=== PATIENT | male | born 1990 | race African-American/Black ===

== ENCOUNTER 2016-07-15 19:36 | Emergency (ER) | payer BC ==
--- NOTE | ~2016-07-15 | CR282 ---
[facility] A Service of [facility] & [facility] RADIOLOGY TEXT RESULTS PATIENT: JESSICA SCHUSTER LOCATION: CFTX : [birth year] UNIT #: [id number] AGE: [address]: Florinda Robin APRN SEX: M ORDER DR: [id number] [facility] [address] [place], [place] [address] [id number] E MR#: [id number] Acc #: [id number] NAME: JESSICA SCHUSTER : 1990 SEX: M STUDY DATE/TIME: 07/15/2016 19:55 UNIT: [facility] ROOM: STUDY DESCRIPTION: CR Wrist Min 3 View Rt Attending Physician: Florinda Robin A.P.R.N. Ordering Physician: Florinda Robin A.P.R.N. Primary Care Physician: No Primary Care Physician MEDICAL IMAGING REPORT This report is preliminary unless electronic signature is present EXAM Right wrist 3 views INDICATIONS 26-year male right wrist pain and swelling today after injury. No comparisons. FINDINGS There is soft tissue swelling of the ulnar aspect of the wrist. No fracture. Carpal alignment maintained. IMPRESSION Soft tissue swelling of the ulnar aspect of the wrist. No evidence of fracture Dictated by... Patricio Rich M.D. THIS IS AN ELECTRONICALLY VERIFIED REPORT Patricio Rich M.D. at 07/18/2016 8:02 AM JOVAN/[email or web address] TD: 07/16/2016 04:16 JOB #: [id number] MEDICAL IMAGING REPORT Page 1 of 1 COPY
--- NOTE | ~2016-07-15 | CR142 ---
[facility] A Service of [facility] & [facility] RADIOLOGY TEXT RESULTS PATIENT: JESSICA SCHUSTER LOCATION: CFTX : 91 UNIT #: [id number] AGE: [address]: Florinda Robin APRN SEX: M ORDER DR: [id number] [facility] [address] [place], [place] [address] [id number] E MR#: [id number] Acc #: [id number] NAME: JESSICA SCHUSTER : 1990 SEX: M STUDY DATE/TIME: 07/15/2016 19:54 UNIT: [facility] ROOM: STUDY DESCRIPTION: CR Hand Min 3 Views Rt Attending Physician: Florinda Robin A.P.R.N. Ordering Physician: Florinda Robin A.P.R.N. Primary Care Physician: No Primary Care Physician MEDICAL IMAGING REPORT This report is preliminary unless electronic signature is present EXAM Right hand 3 views INDICATIONS Right hand pain and swelling today after injury. No comparisons. FINDINGS There is no fracture or dislocation. Joint spaces are preserved. Soft tissue structures unremarkable. IMPRESSION Negative Dictated by... Patricio Rich M.D. THIS IS AN ELECTRONICALLY VERIFIED REPORT Patricio Rich M.D. at 07/18/2016 8:02 AM JOVAN/nicolás TD: 07/16/2016 04:15 JOB #: [id number] MEDICAL IMAGING REPORT Page 1 of 1 COPY
== END 2016-07-15 20:36 | disposition home or self-care (01) ==
LOC: CFTX 19:36
DX: S63.501A Unspecified sprain of right wrist, initial encounter (principal); W22.8XXA Striking against or struck by other objects, initial encounter; Y93.89 Activity, other specified; Y92.810 Car as the place of occurrence of the external cause
CPT/HCPCS: 29125; 73110; 73130; 99283